=== PATIENT | female | born 1950 | race Caucasian/White ===

== ENCOUNTER 2022-09-29 08:26 | Day surgery (SDC) | payer MEDICARE, BC ==
[~2022-09-29 08:26] MED LIST: Propofol 200 MG/20 ML SDV ONE
[2022-09-29] MEDS ORDERED: Lactated Ringers 1,000 ML IV SCH (08:45)
[2022-09-29] MEDS ORDERED: Sodium Chloride 0.9% 10 ML Syringe FLUSH PRN (08:45)
[2022-09-29 10:47] VITALS: BP 104/62; PULSE 61
== END 2022-09-29 11:30 | disposition home or self-care (01) ==
LOC: LL.SDS 08:26
PROVIDERS: ATTEND Surgery
DX: R10.10 Upper abdominal pain, unspecified (principal); G47.00 Insomnia, unspecified; E55.9 Vitamin D deficiency, unspecified; Z79.899 Other long term (current) drug therapy; Z98.890 Other specified postprocedural states; Z91.011 Allergy to milk products
CPT/HCPCS: J2704; J7120